=== PATIENT | female | born 1960 | race Caucasian/White ===

== ENCOUNTER 2017-04-04 12:47 | Emergency (ER) | payer OTHER ==
[~2017-04-04] VITALS: Ht 167.6 cm; Wt 69.1 kg
[~2017-04-04 12:47] MED LIST: CHOL400T38 PO; LEVO88TA2 PO; OXYB5TAB PO; VENL37.52 PO
[2017-04-04] MEDS ORDERED: FAMO20TA7 PO (13:31)
[2017-04-04] MEDS ORDERED: LORA10TA62 PO (13:31)
[2017-04-04] MEDS ORDERED: SODIUM CHLORIDE 0.9% 1,000ML IVBOLUS ONE (14:00)
[2017-04-04] MEDS ORDERED: MECLIZINE CHEWABLE 25 MG TAB PO ONE (14:00)
[2017-04-04] MEDS ORDERED: MECLIZINE CHEWABLE 25 MG TAB ONE (14:10)
[2017-04-04 14:14] LABS: BLOOD UREA NITROGEN 14 mg/dL (7-18)
[2017-04-04 14:57] VITALS: BP 128/87
== END 2017-04-04 15:25 | disposition home or self-care (01) ==
LOC: ED 13:48
DX: H83.03 Labyrinthitis, bilateral (principal); H81.393 Other peripheral vertigo, bilateral; Z88.5 Allergy status to narcotic agent
CPT/HCPCS: 36415; 70450; 80048; 82040; 85025; 93005; 96360; 96361; 99285; J7030

== ENCOUNTER → 2018-08-16 | Outpatient (CLI) | payer OTHER ==
[~2018-08-16] MED LIST changes: -CHOL400T38 PO; +CHOL400T55 PO; +FAMO20TA7 PO; +LORA10TA62 PO
== END | disposition home or self-care (01) ==
LOC: STAR 12:54
PROVIDERS: ATTEND Podiatrist Foot & Ankle Surgery
DX: Z01.818 Encounter for other preprocedural examination (principal); E11.9 Type 2 diabetes mellitus without complications
CPT/HCPCS: 93005

== ENCOUNTER 2020-01-21 18:55 | Inpatient (IN) | payer OTHER ==
[~2020-01-21] VITALS: Ht 167.6 cm; Wt 74.0 kg
[~2020-01-21 18:55] MED LIST changes: +OXYB-39 PO; -OXYB5TAB PO
--- NOTE | 2020-01-21 19:22 | NUR ---
PT. AMBULATORY TO ROOM FROM LOBBY AT THIS TIME.
[2020-01-21 19:28] LABS: BASOPHILS # (AUTO) 0.01 x10^3/uL (0-0.1); BASOPHILS % (AUTO) 0 % (0-1); EOSINOPHILS # (AUTO) 0.09 x10^3/uL (0-0.4); EOSINOPHILS % (AUTO) 1 % (1-7); LYMPHOCYTES # (AUTO) 0.91 x10^3/uL (1-3.4); LYMPHOCYTES % (AUTO) 12 % (22-44); MD NO; MEAN CORPUSCULAR HEMOGLOBIN 28.6 pg (27.0-34.8); MEAN CORPUSCULAR HGB CONC 33.6 g/dL (32.4-35.8); MEAN CORPUSCULAR VOLUME 84.9 fL (80-100); MEAN PLATELET VOLUME 7.4 fL (7.4-10.4); MONOCYTES # (AUTO) 0.32 x10^3/uL (0.2-0.8); MONOCYTES % (AUTO) 4 % (2-9); NEUTROPHILS # (AUTO) 6.59 x10^3/uL (1.8-6.8); NEUTROPHILS % (AUTO) 83 % (42-75); PLATELET COUNT 331 x10^3/uL (130-400); RED BLOOD COUNT 4.68 x10^6/uL (3.82-5.3); RED CELL DISTRIBUTION WIDTH 14.1 % (9.6-15.2)
[2020-01-21 19:40] LABS: ALBUMIN 3.2 g/dL (3.4-5.0); ANION GAP 8 mmol/L (5-15); CALCIUM 8.4 mg/dL (8.5-10.1); CHLORIDE 107 mmol/L (98-107); CREATININE 0.93 mg/dL (0.55-1.02)
[2020-01-21] MEDS ORDERED: SODIUM CHLORIDE FLUSH 10ML SYR IVF ONE (20:30)
[2020-01-21] MEDS ORDERED: SODIUM CHLORIDE 0.9% 1,000ML IVBOLUS ONE (20:30)
[2020-01-21] MEDS ORDERED: ALBUTEROL/IPRATROPIUM 2.5MG/0.5MG, 3 ML NPPB ONE ×2 (20:30→22:30)
--- NOTE | 2020-01-21 20:56 | NUR ---
O2 placed at 2.5 L via NC to keep O2 sats >90%. O2 occassionally drops into the mid 80s.
[2020-01-21 21:11] LABS: RAPID INFLUENZA A Negative (Negative); RAPID INFLUENZA B Negative (Negative)
--- NOTE | 2020-01-21 23:17 | NUR ---
with ambulation, after 2 breathing treatments, pt room air sats during ambulation was between 88% and 92%
[2020-01-21] MEDS ORDERED: methylPREDNISolone SOD SUCC 125 MG/2 ML IV ONE (23:30)
[2020-01-21] MEDS ORDERED: CEFTRIAXONE PMX 1GM/50ML 50 ML IVPB ONE (23:30)
[2020-01-21] MEDS ORDERED: CEFTRIAXONE PMX 1GM/50ML 50 ML ONE (23:49)
[2020-01-21] MEDS ORDERED: methylPREDNISolone SOD SUCC 125 MG/2 ML ONE (23:49)
[2020-01-22] MEDS ORDERED: ACETAMINOPHEN 500 MG TABLET PO ONE
[2020-01-22] MEDS ORDERED: ESTR10TA9 PO (00:05)
[2020-01-22] MEDS ORDERED: omeprazole PO (00:05)
[2020-01-22] MEDS ORDERED: effexor PO (00:07)
[2020-01-22] MEDS ORDERED: ACETAMINOPHEN 500 MG TABLET ONE (00:12)
--- NOTE | 2020-01-22 00:14 | NUR ---
pt continues to remove mask and does not cover her cough. I have told pt 3 times now to wear her mask and not to remove it.
--- NOTE | 2020-01-22 00:14 | NUR ---
pt medicated per emar. pt was going to be dishcarged but her O2 at rest drops to 86% consistantly. pt to be admitted.
[2020-01-22] MEDS ORDERED: SODIUM CHLORIDE NASAL SPRAY 45ML BOTTLE NAS PRN (00:30)
[2020-01-22] MEDS ORDERED: ONDANSETRON ODT 4 MG PO PRN (00:30)
[2020-01-22] MEDS ORDERED: ACETAMINOPHEN 325 MG TABLET PO PRN (00:30)
[2020-01-22] MEDS ORDERED: DOCUSATE 100 MG CAPSULE PO PRN (00:30)
[2020-01-22] MEDS ORDERED: LIDODERM 5% PATCH TD PRN (00:30)
[2020-01-22] MEDS ORDERED: GUAIFENESIN/DM 200-20MG, 10ML UDC PO PRN (00:30)
--- NOTE | 2020-01-22 00:52 | NUR ---
report to gail mensah
[2020-01-22] MEDS ORDERED: ESTRADIOL MC SCH (02:00)
[2020-01-22 02:56] VITALS: BP 141/84
[2020-01-22] MEDS ORDERED: ESTR0.5T PO (03:10)
[2020-01-22] MEDS: LEVOTHYROXINE 88 MCG TABLET PO SCH (05:50)
[2020-01-22 08:45] VITALS: BP 117/75
[2020-01-22] MEDS ORDERED: ESTRADIOL 10 MCG PO SCH (09:00)
[2020-01-22] MEDS: OXYBUTYNIN CHLORIDE 5 MG TABLET PO SCH (09:49)
[2020-01-22] MEDS: LORATADINE 10 MG TABLET PO SCH (09:50)
[2020-01-22] MEDS: ESTRADIOL 0.5 MG TABLET PO SCH (09:50)
[2020-01-22] MEDS: CHOLECALCIFEROL 400 UNITS TABLET PO SCH (09:50)
[2020-01-22] MEDS: ENOXAPARIN 40 MG/0.4 ML SQ SCH (15:30)
[2020-01-22] MEDS: IBUPROFEN 200 MG TABLET PO PRN ×2 (16:22→22:25)
[2020-01-22 16:24] VITALS: BP 137/83
[2020-01-22 19:07] VITALS: BP 150/92
[2020-01-22] MEDS ORDERED: CALCIUM CARBONATE 500 MG TAB.CHEW PO PRN (21:30)
[2020-01-22] MEDS ORDERED: OMNIPAQUE 350 MG/ML, 100ML BOTTLE ONE (21:46)
[2020-01-23] VITALS (8 sets, daily range): BP systolic 134–175; BP diastolic 83–102
[2020-01-23] MEDS: LEVOTHYROXINE 88 MCG TABLET PO SCH (05:49)
[2020-01-23 06:24] LABS: CHLORIDE 112 mmol/L (98-107)
[2020-01-23 06:27] LABS: BASOPHILS # (AUTO) 0.01 x10^3/uL (0-0.1); BASOPHILS % (AUTO) 0 % (0-1); EOSINOPHILS # (AUTO) 0.01 x10^3/uL (0-0.4); EOSINOPHILS % (AUTO) 0 % (1-7); LYMPHOCYTES # (AUTO) 1.09 x10^3/uL (1-3.4); LYMPHOCYTES % (AUTO) 8 % (22-44); MD NO; MEAN CORPUSCULAR HGB CONC 32.5 g/dL (32.4-35.8); MEAN CORPUSCULAR VOLUME 86.2 fL (80-100); MEAN PLATELET VOLUME 7.6 fL (7.4-10.4); MONOCYTES # (AUTO) 0.51 x10^3/uL (0.2-0.8); MONOCYTES % (AUTO) 4 % (2-9); NEUTROPHILS % (AUTO) 88 % (42-75); PLATELET COUNT 332 x10^3/uL (130-400); RED BLOOD COUNT 4.56 x10^6/uL (3.82-5.3)
[2020-01-23 06:28] LABS: ANION GAP 6 mmol/L (5-15); CALCIUM 9.2 mg/dL (8.5-10.1)
[2020-01-23] MEDS: CHOLECALCIFEROL 400 UNITS TABLET PO SCH (08:59)
[2020-01-23] MEDS: LORATADINE 10 MG TABLET PO SCH (09:00)
[2020-01-23] MEDS: OXYBUTYNIN CHLORIDE 5 MG TABLET PO SCH (09:00)
[2020-01-23] MEDS: ESTRADIOL 0.5 MG TABLET PO SCH (09:00)
[2020-01-23] MEDS: CEFTRIAXONE PMX 2GM/50ML 50 ML IV SCH (10:42)
[2020-01-23] MEDS: DOXYCYCLINE 100 MG in DEXTROSE 5% 250 ML IV SCH ×2 (11:30→22:59)
[2020-01-23] MEDS: ENOXAPARIN 40 MG/0.4 ML SQ SCH (15:30)
[2020-01-23] MEDS ORDERED: FUROSEMIDE 40 MG/4 ML IV ONE (18:30)
[2020-01-23] MEDS: ONDANSETRON 2MG/ML, 2ML IVPush PRN (21:16)
[2020-01-24 01:15] VITALS: BP 139/87
[2020-01-24 05:35] LABS: BASOPHILS # (AUTO) 0.02 x10^3/uL (0-0.1); BASOPHILS % (AUTO) 0 % (0-1); EOSINOPHILS # (AUTO) 0.01 x10^3/uL (0-0.4); EOSINOPHILS % (AUTO) 0 % (1-7); LYMPHOCYTES # (AUTO) 1.58 x10^3/uL (1-3.4); LYMPHOCYTES % (AUTO) 14 % (22-44); MD NO; MEAN CORPUSCULAR HEMOGLOBIN 28.2 pg (27.0-34.8); MEAN CORPUSCULAR HGB CONC 32.3 g/dL (32.4-35.8); MEAN CORPUSCULAR VOLUME 87.3 fL (80-100); MEAN PLATELET VOLUME 7.3 fL (7.4-10.4); MONOCYTES # (AUTO) 0.51 x10^3/uL (0.2-0.8); MONOCYTES % (AUTO) 5 % (2-9); NEUTROPHILS % (AUTO) 81 % (42-75); PLATELET COUNT 393 x10^3/uL (130-400); RED BLOOD COUNT 4.85 x10^6/uL (3.82-5.3); RED CELL DISTRIBUTION WIDTH 13.8 % (9.6-15.2)
[2020-01-24] MEDS: LEVOTHYROXINE 88 MCG TABLET PO SCH (05:48)
[2020-01-24 05:49] VITALS: BP 132/78
[2020-01-24 05:49] LABS: ANION GAP 8 mmol/L (5-15); CALCIUM 8.9 mg/dL (8.5-10.1); CHLORIDE 106 mmol/L (98-107)
[2020-01-24 05:50] LABS: CREATININE 0.87 mg/dL (0.55-1.02)
[2020-01-24 07:45] VITALS: BP 143/88
[2020-01-24] MEDS ORDERED: POTASSIUM CHLORIDE 20 MEQ TAB.ER.PRT PO ONE (08:30)
[2020-01-24] MEDS: OXYBUTYNIN CHLORIDE 5 MG TABLET PO SCH (09:00)
[2020-01-24] MEDS: CEFTRIAXONE PMX 2GM/50ML 50 ML IV SCH ×3 (09:00→12:20)
[2020-01-24] MEDS: DOXYCYCLINE 100 MG in DEXTROSE 5% 250 ML IV SCH ×2 (10:00→14:31)
[2020-01-24] MEDS: CHOLECALCIFEROL 400 UNITS TABLET PO SCH (10:23)
[2020-01-24] MEDS: LORATADINE 10 MG TABLET PO SCH (10:23)
[2020-01-24] MEDS: ESTRADIOL 0.5 MG TABLET PO SCH (10:23)
[2020-01-24 12:35] VITALS: BP 166/110
[2020-01-24] MEDS ORDERED: hydrALAzine 20 MG/ML, 1ML IV PRN (13:00)
[2020-01-24] MEDS: ONDANSETRON 2MG/ML, 2ML IVPush PRN (14:31)
[2020-01-24] MEDS: LISINOPRIL 10 MG TABLET PO SCH (14:31)
[2020-01-24] MEDS: ENOXAPARIN 40 MG/0.4 ML SQ SCH (15:30)
[2020-01-24] MEDS: IBUPROFEN 200 MG TABLET PO PRN (17:44)
[2020-01-24 17:57] VITALS: BP 147/106
[2020-01-24 20:00] VITALS: BP 138/92
[2020-01-25 01:08] VITALS: BP 130/83
[2020-01-25] MEDS: DOXYCYCLINE 100 MG in DEXTROSE 5% 250 ML IV SCH (03:11)
[2020-01-25 05:29] LABS: ANION GAP 7 mmol/L (5-15); CALCIUM 8.1 mg/dL (8.5-10.1); CHLORIDE 108 mmol/L (98-107); CREATININE 0.83 mg/dL (0.55-1.02)
[2020-01-25] MEDS: LEVOTHYROXINE 88 MCG TABLET PO SCH (05:32)
[2020-01-25 05:44] LABS: BASOPHILS # (AUTO) 0.01 x10^3/uL (0-0.1); BASOPHILS % (AUTO) 0 % (0-1); EOSINOPHILS # (AUTO) 0.08 x10^3/uL (0-0.4); EOSINOPHILS % (AUTO) 1 % (1-7); LYMPHOCYTES # (AUTO) 1.68 x10^3/uL (1-3.4); LYMPHOCYTES % (AUTO) 24 % (22-44); MD NO; MEAN CORPUSCULAR HEMOGLOBIN 28.3 pg (27.0-34.8); MEAN CORPUSCULAR HGB CONC 32.6 g/dL (32.4-35.8); MEAN CORPUSCULAR VOLUME 86.9 fL (80-100); MEAN PLATELET VOLUME 6.7 fL (7.4-10.4); MONOCYTES # (AUTO) 0.49 x10^3/uL (0.2-0.8); MONOCYTES % (AUTO) 7 % (2-9); NEUTROPHILS # (AUTO) 4.71 x10^3/uL (1.8-6.8); NEUTROPHILS % (AUTO) 68 % (42-75); PLATELET COUNT 426 x10^3/uL (130-400); RED BLOOD COUNT 4.79 x10^6/uL (3.82-5.3)
[2020-01-25 07:34] VITALS: BP 135/95
[2020-01-25] MEDS: CHOLECALCIFEROL 400 UNITS TABLET PO SCH (08:12)
[2020-01-25] MEDS: ESTRADIOL 0.5 MG TABLET PO SCH (08:12)
[2020-01-25] MEDS: LORATADINE 10 MG TABLET PO SCH (08:12)
[2020-01-25] MEDS: CEFTRIAXONE PMX 2GM/50ML 50 ML IV SCH (08:13)
[2020-01-25] MEDS: OXYBUTYNIN CHLORIDE 5 MG TABLET PO SCH (08:13)
[2020-01-25] MEDS: LISINOPRIL 10 MG TABLET PO SCH (08:13)
[2020-01-25] MEDS ORDERED: POTASSIUM CHLORIDE 20 MEQ TAB.ER.PRT PO ONE (09:30)
[2020-01-25] MEDS ORDERED: CEFD300C37 PO (13:10)
[2020-01-25] MEDS ORDERED: DOXY100T23 PO (13:10)
[2020-01-25] MEDS ORDERED: LISI-167 PO (13:10)
[2020-01-25 13:11] VITALS: BP 148/103
[2020-01-25] MEDS ORDERED: DOXYCYCLINE 100MG TABLET PO SCH (21:00)
== END 2020-01-25 15:14 | disposition home or self-care (01) | DRG 177 ==
LOC: ED 01-22 01:27 → EDIP 01-22 01:28 → 3N 01-22 01:43 → DCLOUNGE 01-25 14:59
PROVIDERS: ATTEND Internal Medicine
DX: J15.6 Pneumonia due to other Gram-negative bacteria (principal); J96.01 Acute respiratory failure with hypoxia; F33.0 Major depressive disorder, recurrent, mild; E03.9 Hypothyroidism, unspecified; I11.9 Hypertensive heart disease without heart failure; Z90.710 Acquired absence of both cervix and uterus; Z88.6 Allergy status to analgesic agent; J98.01 Acute bronchospasm; K90.0 Celiac disease
CPT/HCPCS: 36415; 70450; 71046; 71275; 80048; 82040; 83735; 85025; 87400; 93005; 93306; 94640; 96361; 96374; 96375; G0378; J0696; J1940; J2405; J7060; Q9967; J2930; J7030; J7512

== ENCOUNTER 2020-03-20 14:48 | Emergency (ER) | payer OTHER ==
[~2020-03-20] VITALS: Ht 165.1 cm; Wt 71.2 kg
[~2020-03-20 14:48] MED LIST changes: +CEFD300C37 PO; +DOXY100T23 PO; +ESTR0.5T PO; +ESTR10TA9 PO; +LISI-167 PO; +effexor PO; +omeprazole PO
[2020-03-20] MEDS ORDERED: ADENOSINE 6 MG/2 ML ONE ×2 (15:19→15:20)
[2020-03-20] MEDS ORDERED: METOPROLOL 1 MG/ML, 5ML ONE (15:25)
[2020-03-20] MEDS ORDERED: ADENOSINE 6 MG/2 ML IVPush ONE (15:30)
[2020-03-20] MEDS ORDERED: SODIUM CHLORIDE FLUSH 10ML SYR IVF ONE (15:30)
--- NOTE | 2020-03-20 15:32 | NUR ---
PT PRESENTS W SVT IN 160 AND SOB, STARTED TODAY AT WORK, MD AT BEDSIDE. [employer] AP[employer], PACER PADS APPLIED. PT NOT IN RESP DISTRESS. A&OX4. EKG COMPLETED. IV ESTABLISHED AND LABS DRAWN PT RESPONDED WELL TO 6 MG ADENOSINE IVP. HR NOW 108 SINUS, PT FEELING COMFORTABLE. DENIES CP OR SOB. BP STABLE.
[2020-03-20] MEDS ORDERED: FLUORESCEIN OPHTHALMIC 1 MG STRIP ONE (15:49)
[2020-03-20 15:53] LABS: BASOPHILS # (AUTO) 0.04 x10^3/uL (0-0.1); BASOPHILS % (AUTO) 1 % (0-1); EOSINOPHILS # (AUTO) 0.18 x10^3/uL (0-0.4); EOSINOPHILS % (AUTO) 3 % (1-7); LYMPHOCYTES # (AUTO) 1.37 x10^3/uL (1-3.4); LYMPHOCYTES % (AUTO) 20 % (22-44); MD NO; MEAN CORPUSCULAR HEMOGLOBIN 29.1 pg (27.0-34.8); MEAN CORPUSCULAR HGB CONC 33.3 g/dL (32.4-35.8); MEAN CORPUSCULAR VOLUME 87.4 fL (80-100); MEAN PLATELET VOLUME 7.4 fL (7.4-10.4); MONOCYTES # (AUTO) 0.48 x10^3/uL (0.2-0.8); MONOCYTES % (AUTO) 7 % (2-9); NEUTROPHILS # (AUTO) 4.96 x10^3/uL (1.8-6.8); NEUTROPHILS % (AUTO) 71 % (42-75); PLATELET COUNT 408 x10^3/uL (130-400); RED BLOOD COUNT 4.88 x10^6/uL (3.82-5.3); RED CELL DISTRIBUTION WIDTH 14.5 % (9.6-15.2)
[2020-03-20 16:00] LABS: ALBUMIN 3.5 g/dL (3.4-5.0); ANION GAP 7 mmol/L (5-15); CALCIUM 9.4 mg/dL (8.5-10.1); CHLORIDE 110 mmol/L (98-107); CREATININE 0.92 mg/dL (0.55-1.02)
[2020-03-20 16:10] LABS: FREE T4 (FREE THYROXINE) 1.18 ng/dL (0.76-1.46)
[2020-03-20] MEDS ORDERED: METOPROLOL SUCCINATE 25 MG TAB.ER.24H PO ONE (16:30)
--- NOTE | 2020-03-20 16:30 | NUR ---
PT RESTING COMFORTABLE. NO COMPLAINTS OF CP OR SOB. HR NSR 90S. VSS. CONSULT CARDS
[2020-03-20 17:33] VITALS: BP 118/80
--- NOTE | 2020-03-20 17:33 | NUR ---
PT RESTING, VSS. CONSULT CARDS
--- NOTE | 2020-03-20 18:07 | NUR ---
Patient/Caregiver given discharge instructions and they have confirmed that they understand the instructions. Patient ambulatory with steady gait.
== END 2020-03-20 18:09 | disposition home or self-care (01) ==
LOC: ED 16:05
DX: I47.1 Supraventricular tachycardia (principal); R00.2 Palpitations; R06.02 Shortness of breath; R42 Dizziness and giddiness; I10 Essential (primary) hypertension; I48.91 Unspecified atrial fibrillation; Z90.710 Acquired absence of both cervix and uterus
CPT/HCPCS: 36415; 71045; 80048; 82040; 84439; 84443; 85025; 93005; 96374; 99285; J0153; 99291

== ENCOUNTER 2020-04-01 14:32 | Emergency (ER) | payer OTHER ==
[~2020-04-01] VITALS: Ht 167.6 cm; Wt 71.9 kg
--- NOTE | 2020-04-01 14:45 | NUR ---
THIS IS A 60 YO F W/ C/O SOB AND RAPID HR/PALPITATIONS THAT STARTED AT 1300. PT RECENTLY STARTED TAKING 50MG METOPROLOL AFTER AN EPISODE OF SVT LAST WEEK. PT REPORTS THIS IS THE FIRST TIME SHE HAS HAD SYMPTOMS SINCE STARTING NEW MED. PT TACHYCARDIC, OTHER VS WDL. PT RESTING ON GURNEY W/ CALL LIGHT IN REACH AND SIDE RAILS UPX2. RESP EVEN AND UNLABORED, TAE.
--- NOTE | 2020-04-01 15:15 | NUR ---
PT CONVERTED INTO SINUS TACH PRIOR TO REIMBURSEMENT REP.
[2020-04-01 15:34] LABS: ANION GAP 7 mmol/L (5-15); CALCIUM 8.9 mg/dL (8.5-10.1); CHLORIDE 112 mmol/L (98-107); CREATININE 0.88 mg/dL (0.55-1.02)
[2020-04-01] MEDS ORDERED: DIGOXIN 0.25 MG/ML, 2ML ONE (16:15)
[2020-04-01] MEDS ORDERED: DIGOXIN 0.25 MG/ML, 2ML IVPush ONE (16:30)
[2020-04-01 16:34] VITALS: BP 107/68
--- NOTE | 2020-04-01 16:42 | NUR ---
Patient given discharge instructions and they have confirmed that they understand the instructions. Patient ambulatory with steady gait.
== END 2020-04-01 16:43 | disposition home or self-care (01) ==
LOC: ED 16:09
DX: I47.1 Supraventricular tachycardia (principal); I10 Essential (primary) hypertension; I48.92 Unspecified atrial flutter; I25.2 Old myocardial infarction; Z90.710 Acquired absence of both cervix and uterus; Z88.5 Allergy status to narcotic agent
CPT/HCPCS: 36415; 80048; 93005; 96374; 99285; J1160